=== PATIENT | female | born 1985 | race Caucasian/White ===

== ENCOUNTER 2017-12-19 15:00 | Observation (INO) | payer BC ==
[~2017-12-19] VITALS: Ht 154.9 cm; Wt 62.2 kg
[~2017-12-19 15:00] MED LIST: DOCU-131 PO; FERR325T23 PO; IBUP-1222 PO; METF500T5 PO; OXYC-306 PO; PREN1TAB25 PO
[2017-12-19 15:16] VITALS: BP 108/66
[2017-12-19] MEDS ORDERED: PLEASE ENTER HEIGHT AND WEIGHT MC SCH (15:30)
[2017-12-19] MEDS ORDERED: IRON1TAB11 PO (15:35)
[2017-12-19] MEDS ORDERED: ASPI-515 PO (15:37)
[2017-12-19] MEDS ORDERED: SERT25TA PO (15:37)
[2017-12-19] MEDS ORDERED: BETAMETHASONE 6 MG/ML, 5ML IM ONE (15:44)
[2017-12-19] MEDS: BETAMETHASONE 6 MG/ML, 5ML IM SCH (15:50)
[2017-12-19] MEDS ORDERED: LACTATED RINGERS 1,000 ML IV PRN (16:00)
[2017-12-19] MEDS ORDERED: D5%-LACTATED RINGERS 1,000 ML IV SCH (16:00)
[2017-12-19 16:13] LABS: MICROSCOPIC INDICATED
[2017-12-19] MEDS ORDERED: OXYTOCIN 30U/ 0.9% NaCL 500ML 500 ML IV SCH (17:43)
[2017-12-19] MEDS ORDERED: LACTATED RINGERS 1,000 ML IV SCH ×2 (17:43→18:00)
[2017-12-19] MEDS ORDERED: TERBUTALINE 1 MG/ML, 1ML ONE (17:46)
[2017-12-19] MEDS ORDERED: LACTATED RINGERS 1,000 ML IVBOLUS ONE (18:00)
[2017-12-19] MEDS ORDERED: SODIUM CITRATE/CITRIC ACID 30 ML UDC PO ONE (18:00)
[2017-12-19] MEDS ORDERED: ONDANSETRON 2MG/ML, 2ML IVPush ONE (18:00)
[2017-12-19] MEDS ORDERED: METOCLOPRAMIDE 5 MG/ML, 2ML IV ONE (18:00)
[2017-12-19] MEDS ORDERED: TERBUTALINE 1 MG/ML, 1ML SQ ONE (18:00)
[2017-12-19 18:15] LABS: ALANINE AMINOTRANSFERASE 20 U/L (12-78); ALBUMIN 3.3 g/dL (3.4-5.0); ANION GAP 10 mmol/L (5-15); CALCIUM 8.7 mg/dL (8.5-10.1); CHLORIDE 108 mmol/L (98-107); CREATININE 0.41 mg/dL (0.55-1.02)
[2017-12-19 18:17] LABS: ALKALINE PHOSPHATASE 131 U/L (45-117); BILIRUBIN,TOTAL 0.4 mg/dL (0.2-1.0); TOTAL PROTEIN 6.8 g/dL (6.4-8.2)
[2017-12-19 18:36] LABS: MEAN CORPUSCULAR HEMOGLOBIN 35.4 pg (27.0-34.8); MEAN CORPUSCULAR HGB CONC 35.1 g/dL (32.4-35.8); MEAN CORPUSCULAR VOLUME 100.6 fL (80-100); MEAN PLATELET VOLUME 7.1 fL (7.4-10.4); PLATELET COUNT 132 x10^3/uL (130-400)
[2017-12-19 18:38] LABS: BASOPHILS # (AUTO) 0.03 x10^3/uL (0-0.1); BASOPHILS % (AUTO) 0 % (0-1); EOSINOPHILS # (AUTO) 0.04 x10^3/uL (0-0.4); EOSINOPHILS % (AUTO) 0 % (1-7); LYMPHOCYTES # (AUTO) 1.13 x10^3/uL (1-3.4); LYMPHOCYTES % (AUTO) 13 % (22-44); MONOCYTES # (AUTO) 0.17 x10^3/uL (0.2-0.8); MONOCYTES % (AUTO) 2 % (2-9); NEUTROPHILS # (AUTO) 7.45 x10^3/uL (1.8-6.8); NEUTROPHILS % (AUTO) 85 % (42-75)
[2017-12-19 18:39] LABS: MD SCAN
[2017-12-19] MEDS ORDERED: niFEDipine ER 30 MG TABLET.ER ONE (19:51)
[2017-12-19] MEDS ORDERED: ZOLPIDEM 5MG TABLET PO PRN (20:00)
[2017-12-19] MEDS ORDERED: niFEDipine ER 30 MG TABLET.ER PO ONE (20:00)
[2017-12-20] MEDS: BETAMETHASONE 6 MG/ML, 5ML IM SCH (15:49)
== END 2017-12-20 17:43 | disposition home or self-care (01) ==
LOC: LDOP 15:00 → LDIP 17:37
PROVIDERS: ADMIT Obstetrics & Gynecology; ATTEND Obstetrics & Gynecology
DX: O60.03 Preterm labor without delivery, third trimester (principal); O99.02 Anemia complicating childbirth; Z98.891 History of uterine scar from previous surgery; Z37.0 Single live birth; Z3A.36 36 weeks gestation of pregnancy
CPT/HCPCS: 36415; 59025; 80053; 81001; 85025; 86850; 86900; 96360; 96361; 96372; 99201; G0378; J0702; J3105; J7120; J7121; 96366; G0463

== ENCOUNTER 2017-12-24 13:33 | Outpatient (CLI) | payer BC ==
[~2017-12-24] VITALS: Ht 162.6 cm; Wt 62.3 kg
[~2017-12-24 13:33] MED LIST changes: +ASPI-515 PO; +IRON1TAB11 PO; +SERT25TA PO
[2017-12-24 14:17] VITALS: BP 98/53
== END 2017-12-24 16:05 | disposition home or self-care (01) ==
LOC: LDOP 13:33
PROVIDERS: ATTEND Obstetrics & Gynecology
DX: O26.893 Other specified pregnancy related conditions, third trimester (principal); O62.9 Abnormality of forces of labor, unspecified; R10.9 Unspecified abdominal pain; Z3A.37 37 weeks gestation of pregnancy
CPT/HCPCS: 59025; 99211; G0463

== ENCOUNTER 2017-12-26 17:24 | Inpatient (IN) | payer BC ==
[~2017-12-26] VITALS: Ht 154.9 cm; Wt 16.8 kg
[2017-12-26 17:29] VITALS: BP 98/57
[2017-12-26] MEDS ORDERED: LACTATED RINGERS 1,000 ML IV SCH ×2 (17:30→18:10)
[2017-12-26] MEDS ORDERED: NEWBORN KIT ONE (17:52)
[2017-12-26] MEDS ORDERED: OXYTOCIN 30U/ 0.9% NaCL 500ML 500 ML IV SCH (18:10)
[2017-12-26] MEDS ORDERED: METOCLOPRAMIDE 5 MG/ML, 2ML IV ONE (18:30)
[2017-12-26] MEDS ORDERED: LACTATED RINGERS 1,000 ML IVBOLUS ONE (18:30)
[2017-12-26] MEDS ORDERED: SODIUM CITRATE/CITRIC ACID 30 ML UDC PO ONE (18:30)
[2017-12-26] MEDS ORDERED: METOCLOPRAMIDE 5 MG/ML, 2ML ONE (18:36)
[2017-12-26] MEDS: OXYTOCIN 30U/ 0.9% NaCL 500ML 500 ML IV SCH (18:39)
[2017-12-26] MEDS: LACTATED RINGERS 1,000 ML IV SCH ×2 (18:39)
[2017-12-26] MEDS ORDERED: OXYTOCIN 30U/ 0.9% NaCL 500ML 500 ML ONE (18:46)
[2017-12-26] MEDS ORDERED: morphine SULFATE/PF 0.5 MG/ML, 10ML ONE (18:56)
[2017-12-26 18:58] LABS: BASOPHILS # (AUTO) 0.02 x10^3/uL (0-0.1); BASOPHILS % (AUTO) 0 % (0-1); EOSINOPHILS # (AUTO) 0.04 x10^3/uL (0-0.4); EOSINOPHILS % (AUTO) 1 % (1-7); LYMPHOCYTES # (AUTO) 1.85 x10^3/uL (1-3.4); LYMPHOCYTES % (AUTO) 24 % (22-44); MEAN CORPUSCULAR HGB CONC 34.8 g/dL (32.4-35.8); MEAN CORPUSCULAR VOLUME 100.7 fL (80-100); MEAN PLATELET VOLUME 6.8 fL (7.4-10.4); MONOCYTES # (AUTO) 0.59 x10^3/uL (0.2-0.8); MONOCYTES % (AUTO) 8 % (2-9); NEUTROPHILS # (AUTO) 5.16 x10^3/uL (1.8-6.8); NEUTROPHILS % (AUTO) 67 % (42-75); PLATELET COUNT 134 x10^3/uL (130-400); RED BLOOD COUNT 3.24 x10^6/uL (3.82-5.3); RED CELL DISTRIBUTION WIDTH 13.9 % (9.6-15.2)
[2017-12-26 18:59] LABS: MD NO
[2017-12-26] MEDS ORDERED: ACETAMINOPHEN 325 MG TABLET PO PRN (19:00)
[2017-12-26] MEDS ORDERED: MISOPROSTOL 200 MCG TABLET PR PRN (19:00)
[2017-12-26] MEDS ORDERED: morphine SULFATE 10 MG/ML, 1ML IVPush PRN (19:00)
[2017-12-26] MEDS ORDERED: MEPERIDINE/PF 50 MG/ML IVPush PRN (19:00)
[2017-12-26] MEDS ORDERED: METHYLERGONOVINE 0.2 MG/ML IM PRN (19:00)
[2017-12-26] MEDS ORDERED: CARBOPROST TROMETHAMINE 250 MCG/ML, 1ML IM PRN (19:00)
[2017-12-26] MEDS ORDERED: ONDANSETRON 2MG/ML, 2ML IV PRN (19:00)
[2017-12-26] MEDS ORDERED: OXYcodone/APAP 5/325MG TABLET PO PRN ×3 (19:00→21:30)
[2017-12-26] MEDS ORDERED: ONDANSETRON 2MG/ML, 2ML ONE (19:21)
[2017-12-26] MEDS ORDERED: WATER-INJECTION,STERILE 10 ML IV ONE (19:21)
[2017-12-26] MEDS ORDERED: CEFAZOLIN 1,000 MG ONE (19:21)
[2017-12-26] MEDS ORDERED: EPHEDRINE 50 MG/ML, 1ML ONE (19:21)
[2017-12-26] MEDS ORDERED: OXYTOCIN 10 UNITS/ML, 1ML ONE (19:21)
[2017-12-26] MEDS ORDERED: PHENYLEPHRINE 10 MG/ML ONE (19:21)
[2017-12-26] MEDS ORDERED: MEPERIDINE/PF 50 MG/ML ONE (20:14)
[2017-12-26] MEDS ORDERED: KETOROLAC 30 MG/1 ML ONE (21:01)
[2017-12-26] MEDS ORDERED: OXYcodone/APAP 10/325MG TABLET ONE (21:01)
[2017-12-26] MEDS ORDERED: HYDROmorphone 2 MG/ML, 1ML ONE ×2 (21:02→22:04)
[2017-12-26] MEDS: KETOROLAC 30 MG/1 ML IV SCH (21:06)
[2017-12-26] MEDS: OXYcodone/APAP 10/325MG TABLET PO PRN (21:10)
[2017-12-26] MEDS ORDERED: KETOROLAC 30 MG/1 ML IVPush PRN (21:30)
[2017-12-26] MEDS ORDERED: HYDROmorphone 1 MG/ML, 1ML IV ONE ×2 (21:30→22:30)
[2017-12-26] MEDS ORDERED: DIPHENHYDRAMINE 50 MG/ML, 1ML IVPush PRN (21:30)
[2017-12-26] MEDS ORDERED: NALOXONE 0.4 MG/ML, 1ML IVPush PRN (21:30)
[2017-12-26] MEDS ORDERED: ONDANSETRON 2MG/ML, 2ML IVPush PRN (21:30)
[2017-12-26 22:05] VITALS: BP 105/62
[2017-12-26] MEDS ORDERED: HYDROmorphone 1 MG/ML, 1ML IV PRN (22:30)
[2017-12-27 00:15] VITALS: BP 101/69
[2017-12-27] MEDS ORDERED: HYDROmorphone 2 MG/ML, 1ML ONE (00:48)
[2017-12-27] MEDS: LACTATED RINGERS 1,000 ML IV SCH ×6 (02:39→23:37)
[2017-12-27] MEDS: KETOROLAC 30 MG/1 ML IV SCH ×4 (02:48→21:29)
[2017-12-27] MEDS: OXYcodone/APAP 10/325MG TABLET PO PRN ×2 (02:48→06:47)
[2017-12-27 03:00] VITALS: BP 90/53
[2017-12-27 04:20] LABS: BASOPHILS # (AUTO) 0.01 x10^3/uL (0-0.1); BASOPHILS % (AUTO) 0 % (0-1); EOSINOPHILS # (AUTO) 0.09 x10^3/uL (0-0.4); EOSINOPHILS % (AUTO) 1 % (1-7); LYMPHOCYTES # (AUTO) 1.69 x10^3/uL (1-3.4); LYMPHOCYTES % (AUTO) 19 % (22-44); MD NO; MEAN CORPUSCULAR HGB CONC 34.5 g/dL (32.4-35.8); MEAN CORPUSCULAR VOLUME 101.5 fL (80-100); MEAN PLATELET VOLUME 7.1 fL (7.4-10.4); MONOCYTES # (AUTO) 0.67 x10^3/uL (0.2-0.8); MONOCYTES % (AUTO) 8 % (2-9); NEUTROPHILS # (AUTO) 6.46 x10^3/uL (1.8-6.8); NEUTROPHILS % (AUTO) 73 % (42-75); PLATELET COUNT 121 x10^3/uL (130-400); RED BLOOD COUNT 2.76 x10^6/uL (3.82-5.3); RED CELL DISTRIBUTION WIDTH 14.1 % (9.6-15.2)
[2017-12-27] MEDS: OXYTOCIN 30U/ 0.9% NaCL 500ML 500 ML IV SCH ×2 (04:39→14:39)
[2017-12-27 07:42] VITALS: BP 98/61
[2017-12-27] MEDS ORDERED: SERTRALINE 100MG TABLET ONE (08:44)
[2017-12-27] MEDS: SERTRALINE 50MG TABLET PO SCH (09:00)
[2017-12-27] MEDS: PRENATAL VIT/IRON/FA 1 EACH TABLET PO SCH (09:02)
[2017-12-27] MEDS: DOCUSATE 100 MG CAPSULE PO PRN ×2 (09:02→21:29)
[2017-12-27] MEDS: metFORMIN 500 MG TABLET PO SCH (09:03)
[2017-12-27] MEDS: OXYcodone IR 5MG TABLET PO PRN ×4 (10:58→22:31)
[2017-12-27 12:00] VITALS: BP 86/53
[2017-12-27] MEDS: ACETAMINOPHEN 325 MG TABLET PO PRN ×2 (15:20→21:29)
[2017-12-27 20:20] VITALS: BP 96/61
[2017-12-28] MEDS: OXYTOCIN 30U/ 0.9% NaCL 500ML 500 ML IV SCH ×2 (00:39→10:39)
[2017-12-28] MEDS: LACTATED RINGERS 1,000 ML IV SCH ×3 (00:39→10:39)
[2017-12-28] MEDS: OXYcodone IR 5MG TABLET PO PRN ×3 (02:35→12:01)
[2017-12-28] MEDS: KETOROLAC 30 MG/1 ML IV SCH ×2 (03:28→09:54)
[2017-12-28] MEDS: ACETAMINOPHEN 325 MG TABLET PO PRN ×2 (03:28→09:54)
[2017-12-28 07:00] VITALS: BP 88/52
[2017-12-28] MEDS: PRENATAL VIT/IRON/FA 1 EACH TABLET PO SCH (07:42)
[2017-12-28] MEDS: metFORMIN 500 MG TABLET PO SCH (07:42)
[2017-12-28] MEDS: DOCUSATE 100 MG CAPSULE PO PRN (07:42)
[2017-12-28] MEDS: SERTRALINE 50MG TABLET PO SCH (09:00)
[2017-12-28] MEDS ORDERED: OXYC-307 PO (11:30)
[2017-12-28] MEDS ORDERED: IBUPROFEN 600 MG TABLET PO PRN (19:00)
== END 2017-12-28 12:30 | disposition home or self-care (01) | DRG 765 ==
LOC: LDOP 17:24 → LDIP 18:10 → 2NW 21:33
PROVIDERS: ADMIT Obstetrics & Gynecology; ATTEND Obstetrics & Gynecology
PROC: 10D00Z1 Extraction of Products of Conception, Low, Open Approach (ICD-10-PCS; principal; 2017-12-26)
DX: O34.211 Maternal care for low transverse scar from previous cesarean delivery (principal); O99.354 Diseases of the nervous system complicating childbirth; O99.344 Other mental disorders complicating childbirth; Z86.32 Personal history of gestational diabetes; Z79.899 Other long term (current) drug therapy; Z79.84 Long term (current) use of oral hypoglycemic drugs; Z67.91 Unspecified blood type, Rh negative; Z3A.37 37 weeks gestation of pregnancy; O26.893 Other specified pregnancy related conditions, third trimester; Z37.0 Single live birth; G43.909 Migraine, unspecified, not intractable, without status migrainosus; F32.9 Major depressive disorder, single episode, unspecified; E28.2 Polycystic ovarian syndrome
CPT/HCPCS: 36415; 85025; 86850; 86900; J0690; J1170; J1885; J2175; J2274; J2405; J2370; J2590; J2765; J7120

== ENCOUNTER 2019-07-18 19:53 | Outpatient (CLI) | payer BC ==
[~2019-07-18] VITALS: Ht 154.9 cm; Wt 56.8 kg
[~2019-07-18 19:53] MED LIST changes: +METF500T17 PO; -METF500T5 PO; +OXYC-307 PO
[2019-07-18 20:18] LABS: MICROSCOPIC NOT IND
[2019-07-18] MEDS ORDERED: PLEASE ENTER HEIGHT AND WEIGHT MC SCH (20:30)
[2019-07-18] MEDS ORDERED: SERT100T PO (20:42)
[2019-07-18 20:43] VITALS: BP 107/57
[2019-07-18] MEDS ORDERED: TERBUTALINE 1 MG/ML, 1ML ONE (21:16)
[2019-07-18] MEDS ORDERED: TERBUTALINE 1 MG/ML, 1ML SQ ONE (21:30)
== END 2019-07-18 21:43 | disposition home or self-care (01) ==
LOC: LDOP 19:53
PROVIDERS: ATTEND Obstetrics & Gynecology
DX: O62.9 Abnormality of forces of labor, unspecified (principal)
CPT/HCPCS: 59025; 81003; 87086; 96372; 99211; J3105; G0463

== ENCOUNTER 2019-08-22 16:34 | Inpatient (IN) | payer BC ==
[~2019-08-22] VITALS: Ht 154.9 cm; Wt 57.3 kg
[~2019-08-22 16:34] MED LIST changes: +SERT100T PO
[2019-08-22] MEDS ORDERED: CODE1CAP9 PO (16:46)
[2019-08-22 16:49] VITALS: BP 107/59
[2019-08-22] MEDS ORDERED: SODIUM CITRATE/CITRIC ACID 30 ML UDC ONE ×2 (17:23→17:26)
[2019-08-22] MEDS ORDERED: LACTATED RINGERS 1,000 ML IV SCH (17:23)
[2019-08-22] MEDS ORDERED: METOCLOPRAMIDE 5 MG/ML, 2ML ONE ×2 (17:23→17:26)
[2019-08-22] MEDS ORDERED: OXYTOCIN 30U/ 0.9% NaCL 500ML 500 ML ONE (17:26)
[2019-08-22] MEDS ORDERED: NEWBORN KIT ONE (17:26)
[2019-08-22] MEDS ORDERED: SODIUM CITRATE/CITRIC ACID 30 ML UDC PO ONE (17:30)
[2019-08-22] MEDS ORDERED: LACTATED RINGERS 1,000 ML IVBOLUS ONE (17:30)
[2019-08-22] MEDS ORDERED: METOCLOPRAMIDE 5 MG/ML, 2ML IV ONE (17:30)
[2019-08-22] MEDS ORDERED: FENTANYL PF 100 MCG/2ML ONE ×2 (17:41→22:11)
[2019-08-22] MEDS ORDERED: EPHEDRINE 50 MG/ML, 1ML IVPush PRN (18:00)
[2019-08-22] MEDS ORDERED: OXYcodone 5 MG/5 ML ORAL.SOL UDC PO PRN (18:00)
[2019-08-22] MEDS ORDERED: MORPHINE SULFATE 4 MG/ML, 1ML IVPush PRN ×2 (18:00→21:00)
[2019-08-22] MEDS ORDERED: MEPERIDINE/PF 25MG/ML,1ML IVPush PRN (18:00)
[2019-08-22] MEDS ORDERED: ONDANSETRON 2MG/ML, 2ML IV PRN ×2 (18:00→21:00)
[2019-08-22 18:16] LABS: MEAN CORPUSCULAR HEMOGLOBIN 35.1 pg (27.0-34.8); MEAN CORPUSCULAR HGB CONC 33.9 g/dL (32.4-35.8); MEAN CORPUSCULAR VOLUME 103.6 fL (80-100); RED BLOOD COUNT 3.14 x10^6/uL (3.82-5.3); RED CELL DISTRIBUTION WIDTH 13.9 % (9.6-15.2)
[2019-08-22 18:22] LABS: BASOPHILS # (AUTO) 0.03 x10^3/uL (0-0.1); BASOPHILS % (AUTO) 0 % (0-1); EOSINOPHILS % (AUTO) 1 % (1-7); LYMPHOCYTES # (AUTO) 1.59 x10^3/uL (1-3.4); LYMPHOCYTES % (AUTO) 20 % (22-44); MD SCAN; MEAN PLATELET VOLUME 7.2 fL (7.4-10.4); MONOCYTES # (AUTO) 0.59 x10^3/uL (0.2-0.8); MONOCYTES % (AUTO) 7 % (2-9); NEUTROPHILS # (AUTO) 5.86 x10^3/uL (1.8-6.8); NEUTROPHILS % (AUTO) 72 % (42-75); PLATELET COUNT 135 x10^3/uL (130-400)
[2019-08-22] MEDS ORDERED: KETOROLAC 30 MG/1 ML ONE (19:02)
[2019-08-22] MEDS ORDERED: EPHEDRINE 50 MG/ML, 1ML ONE (19:02)
[2019-08-22] MEDS ORDERED: OXYTOCIN 10 UNITS/ML, 1ML ONE ×3 (19:02→20:26)
[2019-08-22] MEDS ORDERED: CEFAZOLIN 1,000 MG ONE (19:02)
[2019-08-22] MEDS ORDERED: EPINEPHRINE 1 MG/ML, 1ML ONE (19:02)
[2019-08-22 19:07] LABS: AMPHETAMINE SCREEN, URINE Negative (Negative); BARBITURATE SCREEN, URINE Positive (Negative); BENZODIAZEPINE SCREEN, URINE Negative (Negative); CANNABINOID SCREEN, URINE Negative (Negative); COCAINE SCREEN, URINE Negative (Negative); METHADONE SCREEN, URINE Negative (Negative); OPIATE SCREEN, URINE Positive (Negative)
[2019-08-22] MEDS ORDERED: ONDANSETRON 2MG/ML, 2ML ONE (19:41)
[2019-08-22] MEDS: LACTATED RINGERS 1,000 ML IV SCH ×2 (20:36→20:52)
[2019-08-22] MEDS: OXYTOCIN 30U/ 0.9% NaCL 500ML 500 ML IV SCH (20:53)
[2019-08-22] MEDS ORDERED: IBUPROFEN 600 MG TABLET PO PRN (21:00)
[2019-08-22] MEDS ORDERED: OXYcodone IR 5MG TABLET PO PRN (21:00)
[2019-08-22] MEDS ORDERED: MISOPROSTOL 200 MCG TABLET PR PRN (21:00)
[2019-08-22] MEDS ORDERED: OXYcodone 5 MG/5 ML ORAL.SOL UDC ONE (21:00)
[2019-08-22] MEDS ORDERED: METHYLERGONOVINE 0.2 MG/ML IM PRN (21:00)
[2019-08-22] MEDS ORDERED: CARBOPROST TROMETHAMINE 250 MCG/ML, 1ML IM PRN (21:00)
[2019-08-22] MEDS ORDERED: ACETAMINOPHEN 325 MG TABLET PO PRN (21:00)
[2019-08-22] MEDS ORDERED: MISOPROSTOL 200 MCG TABLET SL PRN (21:00)
[2019-08-22] MEDS ORDERED: morphine SULFATE 10 MG/ML, 1ML ONE (21:23)
[2019-08-22] MEDS: morphine SULFATE 10 MG/ML, 1ML IV PRN ×2 (21:24→21:48)
[2019-08-22] MEDS: FENTANYL PF 100 MCG/2ML IV PRN ×2 (22:13→22:24)
[2019-08-22] MEDS: NITROFURANTOIN (MACROBID) 100 MG CAPSULE PO SCH (23:13)
[2019-08-22] MEDS: KETOROLAC 30 MG/1 ML IV SCH (23:13)
[2019-08-22 23:15] VITALS: BP 105/59
[2019-08-23] MEDS: MEPERIDINE/PF 50 MG/ML IM PRN ×5 (00:23→17:39)
[2019-08-23] MEDS: OXYcodone IR 5MG TABLET PO PRN ×5 (01:13→19:57)
[2019-08-23 03:31] LABS: BASOPHILS # (AUTO) 0.03 x10^3/uL (0-0.1); BASOPHILS % (AUTO) 0 % (0-1); EOSINOPHILS # (AUTO) 0.01 x10^3/uL (0-0.4); EOSINOPHILS % (AUTO) 0 % (1-7); LYMPHOCYTES # (AUTO) 1.77 x10^3/uL (1-3.4); LYMPHOCYTES % (AUTO) 18 % (22-44); MD NO; MEAN CORPUSCULAR HEMOGLOBIN 36.2 pg (27.0-34.8); MEAN CORPUSCULAR HGB CONC 35.3 g/dL (32.4-35.8); MEAN CORPUSCULAR VOLUME 102.7 fL (80-100); MEAN PLATELET VOLUME 7.2 fL (7.4-10.4); MONOCYTES # (AUTO) 0.92 x10^3/uL (0.2-0.8); MONOCYTES % (AUTO) 9 % (2-9); NEUTROPHILS % (AUTO) 73 % (42-75); PLATELET COUNT 145 x10^3/uL (130-400); RED BLOOD COUNT 2.82 x10^6/uL (3.82-5.3)
[2019-08-23 04:30] VITALS: BP 98/53
[2019-08-23] MEDS: LACTATED RINGERS 1,000 ML IV SCH ×5 (04:36→20:36)
[2019-08-23] MEDS: KETOROLAC 30 MG/1 ML IV SCH ×4 (05:20→23:00)
[2019-08-23] MEDS: OXYTOCIN 30U/ 0.9% NaCL 500ML 500 ML IV SCH ×2 (06:36→16:36)
[2019-08-23 07:33] VITALS: BP 94/61
[2019-08-23] MEDS: SERTRALINE 50MG TABLET PO SCH (08:35)
[2019-08-23] MEDS: NITROFURANTOIN (MACROBID) 100 MG CAPSULE PO SCH ×2 (08:35→21:08)
[2019-08-23] MEDS: DOCUSATE 100 MG CAPSULE PO PRN ×2 (08:35→19:46)
[2019-08-23] MEDS: PRENATAL VIT/IRON/FA 1 EACH TABLET PO SCH (09:00)
[2019-08-23] MEDS ORDERED: OPIUM/BELLADONNA SUPP.RECT 16.2-30 MG PR PRN (11:00)
[2019-08-23 12:00] VITALS: BP 89/52
[2019-08-23 16:00] VITALS: BP 90/62
[2019-08-23] MEDS: SIMETHICONE 80 MG CHEW TAB PO PRN (17:30)
[2019-08-23 19:20] VITALS: BP 92/55
[2019-08-23] MEDS ORDERED: MEPERIDINE/PF 50 MG/ML IM PRN (19:30)
[2019-08-23] MEDS ORDERED: RHOGAM FROM BLOOD BANK 1 NOTE EA IM/IV ONE (20:30)
[2019-08-24] VITALS: BP 92/52
[2019-08-24] MEDS: SIMETHICONE 80 MG CHEW TAB PO PRN (00:50)
[2019-08-24] MEDS: OXYcodone IR 5MG TABLET PO PRN ×5 (01:34→19:26)
[2019-08-24] MEDS: OXYTOCIN 30U/ 0.9% NaCL 500ML 500 ML IV SCH ×2 (02:36→12:36)
[2019-08-24] MEDS: LACTATED RINGERS 1,000 ML IV SCH ×4 (02:36→12:36)
[2019-08-24] MEDS: KETOROLAC 30 MG/1 ML IV SCH ×3 (05:09→16:34)
[2019-08-24 08:55] VITALS: BP 93/56
[2019-08-24] MEDS: PRENATAL VIT/IRON/FA 1 EACH TABLET PO SCH (09:14)
[2019-08-24] MEDS: SERTRALINE 50MG TABLET PO SCH (09:14)
[2019-08-24] MEDS: DOCUSATE 100 MG CAPSULE PO PRN (09:14)
[2019-08-24] MEDS: NITROFURANTOIN (MACROBID) 100 MG CAPSULE PO SCH (09:14)
[2019-08-24] MEDS ORDERED: DOCU-131 PO (15:04)
[2019-08-24] MEDS ORDERED: OXYC-432 PO (15:05)
[2019-08-24] MEDS ORDERED: IBUP-1222 PO (15:06)
[2019-08-24] MEDS ORDERED: NITR100C56 PO (15:07)
== END 2019-08-24 21:30 | disposition home or self-care (01) | DRG 787 ==
LOC: LDOP 16:34 → LDIP 17:23 → 2NW 22:58
PROVIDERS: ADMIT Obstetrics & Gynecology; ATTEND Obstetrics & Gynecology
PROC: 10D00Z1 Extraction of Products of Conception, Low, Open Approach (ICD-10-PCS; principal; 2019-08-22)
PROC: 0TQB8ZZ Repair Bladder, Via Natural or Artificial Opening Endoscopic (ICD-10-PCS; 2019-08-22)
PROC: 3E0234Z Introduction of Serum, Toxoid and Vaccine into Muscle, Percutaneous Approach (ICD-10-PCS; 2019-08-23)
DX: O34.211 Maternal care for low transverse scar from previous cesarean delivery (principal); O99.354 Diseases of the nervous system complicating childbirth; N99.71 Accidental puncture and laceration of a genitourinary system organ or structure during a genitourinary system procedure; O69.81X0 Labor and delivery complicated by cord around neck, without compression, not applicable or unspecified; O99.344 Other mental disorders complicating childbirth; O26.893 Other specified pregnancy related conditions, third trimester; Z37.0 Single live birth; Z3A.37 37 weeks gestation of pregnancy; Z79.899 Other long term (current) drug therapy; Z86.32 Personal history of gestational diabetes; K66.0 Peritoneal adhesions (postprocedural) (postinfection); G43.909 Migraine, unspecified, not intractable, without status migrainosus; F32.9 Major depressive disorder, single episode, unspecified; E28.2 Polycystic ovarian syndrome; D25.9 Leiomyoma of uterus, unspecified; N32.89 Other specified disorders of bladder; O34.13 Maternal care for benign tumor of corpus uteri, third trimester; Z67.91 Unspecified blood type, Rh negative; Y83.9 Surgical procedure, unspecified as the cause of abnormal reaction of the patient, or of later complication, without mention of misadventure at the time of the procedure
CPT/HCPCS: 36415; 80307; 82803; 85025; 85461; 86592; 86850; 86900; G0378; J0171; J0690; J1885; J2175; J2405; J2790; J3010; J2270; J2590; J2765; J7120

== ENCOUNTER 2019-08-29 12:35 | Outpatient (CLI) | payer BC ==
[~2019-08-29 12:35] MED LIST changes: +CODE1CAP9 PO; +NITR100C56 PO; +OXYC-432 PO
== END 2019-08-29 23:59 | disposition home or self-care (01) ==
LOC: RAD 12:35
PROVIDERS: ATTEND Urology
DX: S37.2 Injury of bladder (principal); X58.XXXS Exposure to other specified factors, sequela
CPT/HCPCS: 51600; 74430; Q9958